=== PATIENT | male | born 1950 | race Caucasian/White ===

== ENCOUNTER → 2016-07-15 | Outpatient (CLI) | payer BC, OTHER ==
[~2016-07-15] MED LIST: ALBU1AER9 INH; ALLERGY INJECTIONS INJ; ASCA500 PO; ATOR10TA82 PO; BECL0.3A INH; CALC200T PO; CALC500C50 PO; CHLORPHENIRAMINE PO; COD1000C PO; CYCL10TA6 PO; GLUCTAB7 PO; HYDR-3419 PO; MBC75 PO; MISC1TAB PO; MONT1TAB5 PO; MULT-351 PO; NAPR1TAB9 PO; SODI5OIN4 IO; SUDAFED PO; TADA2.5T PO; UNPSR400 PO; [UNRECOGNIZED DRUG - CODE] PO
--- NOTE | 2016-07-15 11:08 | DIAGNOSTIC IMAGING REPORT ---
CHEST 2 VIEWS ROUTINE CLINICAL HISTORY: Cough. COMPARISON STUDY: Chest radiograph June 09, 2015. FINDINGS: Lung volumes are normal. There is no consolidation to suggest pneumonia. There is no evidence of pulmonary edema. Cardiomediastinal silhouette is normal. IMPRESSION: No acute cardiopulmonary findings. Electronically signed by: Bill Pulido M.D. 07/15/2016 11:07 AM Dictated Date/Time: 07/15/2016 11:06 AM
== END | disposition home or self-care (01) ==
LOC: C.RAD1850 10:31
PROVIDERS: ATTEND Physician Assistant Medical
DX: R05 Cough (principal)

== ENCOUNTER → 2016-09-09 | Outpatient (CLI) | payer BC, OTHER ==
[2016-09-09 09:54] LABS: BASO % 0.8 %; BASO ABS # 0.05 K/uL (0-0.2); COMPLETE YES; EOS % 18.8 %; HEMATOCRIT 45.1 % (42-52); IG% 0.2 %; LYMPH % 20.9 %; LYMPH ABS # 1.34 K/uL (1.2-3.4); MEAN CELL VOLUME 85.1 fL (80-100); MEAN CORPUSCULAR HEMOGLOBIN 28.5 pg (25-34); MEAN CORPUSCULAR HGB CONC 33.5 g/dl (32-36); MEAN PLATELET VOLUME 10.1 fL (7.4-10.4); NEUT % 49.3 %; PLATELET COUNT 290 K/uL (130-400)
[2016-09-09 10:02] LABS: BLOOD UREA NITROGEN 19 mg/dl (7-18); BUN/CREATININE RATIO 16.9 (10-20); CARBON DIOXIDE 25 mmol/L (21-32); CHLORIDE 107 mmol/L (98-107); GLUCOSE 99 mg/dl (70-99); POTASSIUM 4.2 mmol/L (3.5-5.1); SODIUM 140 mmol/L (136-145)
[2016-09-09 10:05] LABS: ALB/GLOB RATIO 1.1 (0.9-2); ALKALINE PHOSPHATASE 41 U/L (45-117); ALT/SGPT 37 U/L (12-78); AST/SGOT 29 U/L (15-37); CHOLESTEROL 157 mg/dl (0-200); CHOLESTEROL/HDL RATIO 4.1; HDL CHOLESTEROL 38 mg/dl; LDL CHOLESTEROL CALCULATED 93 mg/dl; TRIGLYCERIDES 132 mg/dl (0-150); VERY LOW DENSITY LIPOPROT CALC 26 mg/dl
[2016-09-09 10:07] LABS: CALCIUM 8.9 mg/dl (8.5-10.1)
== END | disposition home or self-care (01) ==
LOC: C.LAB1850 08:06
PROVIDERS: ATTEND Internal Medicine Pulmonary Disease
DX: J30.9 Allergic rhinitis, unspecified (principal); J45.909 Unspecified asthma, uncomplicated; G47.33 Obstructive sleep apnea (adult) (pediatric); E78.5 Hyperlipidemia, unspecified

== ENCOUNTER → 2017-03-22 | Outpatient (CLI) | payer OTHER ==
[~2017-03-22] MED LIST changes: +ACET-24 PO; +ASPEC325 PO; +BECL80AE7 INH; +CHLO4TAB70 PO; +IBUP-1450 PO; +MURO OPB; +PSEU30TA3 PO; +RXC5 PO; +TADA10TA PO; +VNTHFA/IN INH; +[UNRECOGNIZED DRUG - OTHER] PO
[2017-03-22 10:08] LABS: BASO % 0.9 %; BASO ABS # 0.05 K/uL (0-0.2); EOS ABS # 0.76 K/uL (0-0.5); HEMATOCRIT 44.4 % (42-52); HEMOGLOBIN 14.8 g/dL (14.0-18.0); IG# 0.01 K/uL (0.00-0.02); LYMPH % 25.1 %; LYMPH ABS # 1.47 K/uL (1.2-3.4); MEAN CELL VOLUME 83.8 fL (80-100); MEAN CORPUSCULAR HEMOGLOBIN 27.9 pg (25-34); MEAN CORPUSCULAR HGB CONC 33.3 g/dl (32-36); MEAN PLATELET VOLUME 10.1 fL (7.4-10.4); MONO % 9.2 %; MONO ABS # 0.54 K/uL (0.11-0.59); NEUT % 51.6 %; NEUT ABS # 3.02 K/uL (1.4-6.5); PLATELET COUNT 314 K/uL (130-400); RED CELL DISTRIBUTION WIDTH CV 13.8 % (11.5-14.5); RED CELL DISTRIBUTION WIDTH SD 42.5 fL (36.4-46.3); WHITE BLOOD COUNT 5.85 K/uL (4.8-10.8)
[2017-03-22 10:37] LABS: ALBUMIN 3.7 gm/dl (3.4-5.0); ALT/SGPT 34 U/L (12-78); AST/SGOT 24 U/L (15-37); BLOOD UREA NITROGEN 22 mg/dl (7-18); CALCIUM 8.7 mg/dl (8.5-10.1); CARBON DIOXIDE 25 mmol/L (21-32); CHOLESTEROL 152 mg/dl (0-200); CREATININE 0.93 mg/dl (0.60-1.40); GLUCOSE 102 mg/dl (70-99); POTASSIUM 4.1 mmol/L (3.5-5.1); SODIUM 138 mmol/L (136-145)
[2017-03-22 10:47] LABS: ALKALINE PHOSPHATASE 43 U/L (45-117); LDL CHOLESTEROL CALCULATED 92 mg/dl; TOTAL PROTEIN 7.3 gm/dl (6.4-8.2)
--- NOTE | 2017-07-15 06:01 | CODING QUERY MEDICAL NECESSITY ---
XQSUPPORTING DIAGNOSIS NEEDED A supporting diagnosis is required for the test/procedure performed on this patient in order for us to be reimbursed by the patient's insurance. Please provide a supporting diagnosis for the following test/procedure listed below next to the test name along with your signature. *If there is no additional diagnosis for this patient that would support the following test/procedure please document that below next to the test/procedure. Test(s)/Procedure(s) that require a supporting diagnosis: DOS 04/09/17 COMPLETE BLOOD COUNTS TESTING THYROID TEST LIPID TEST Provider Signature: Date: Thank you Ed[facility] Once completed, please kindly fax back to [phone] For questions please call [phone]
== END | disposition home or self-care (01) ==
LOC: C.LAB1850 09:00
PROVIDERS: ATTEND Internal Medicine Pulmonary Disease
DX: Z12.5 Encounter for screening for malignant neoplasm of prostate (principal); H91.90 Unspecified hearing loss, unspecified ear; J45.909 Unspecified asthma, uncomplicated; J30.9 Allergic rhinitis, unspecified; I10 Essential (primary) hypertension; E78.5 Hyperlipidemia, unspecified

== ENCOUNTER 2017-04-05 10:23 | Inpatient (IN) | payer OTHER ==
[2017-03-30 13:33] VITALS: Ht 177.8 cm; Wt 82.2 kg
--- NOTE | 2017-03-30 14:08 | PAT Medication Instructions ---
Service Date Mar 30, 2017. Current Home Medication List Albuterol Hfa (Ventolin Hfa), 2 PUFFS INH Q6H PRN for PRN Ascorbic Acid (Vitamin C), 500 MG PO QAM Atorvastatin (Lipitor), 10 MG PO QAM Beclomethasone Dip (Qvar), 2 SPRAYS INH PRN Calcium Carbonate (Antacid) (Tums), 2 TAB PO UD PRN for Dyspepsia Calcium Carbonate-Vitamin D (Oscal 500/200 D-3), 1 TAB PO UD Chlorpheniramine Maleate (Chlorpheniramine Maleate), 4 MG PO PRN Cod Liver Oil (Cod Liver Oil 1000 mg), 1 CAP PO QAM Lgpgtsjpiku-Jgbvejjvzce-Zbm C- (Glucosamine Chondroitin), 3 TAB PO QAM Misc Natural Products (Urinozinc Plus), 1 TAB PO BID PRN for TAB Montelukast Sodium (Montelukast Sodium), 10 MG PO QAM Multiple Vitamin (Multi Vitamin Mens), 1 TAB PO QAM Naproxen (Aleve), 40 MG PO PRN Pseudoephedrine Hcl (Sudafed Nasal Decongestan), 60 TAB PO BID PRN for RN [place] Extract (Trinovin), 2 CAP PO BID Tadalafil (Cialis), 5 MG PO QPM Theophylline Cont Rel (Uniphyl Controlled Rel), 800 MG PO QAM PRN for PRN [Allergy Injections], 1 DOSE INJ WK [Ronna 128 Oint], 1 DOSE OPB HS [Nervefix], 1 TAB PO BID Medication Instructions For Your Scheduled Surgery - Hold the following medications starting 110/18: [place] Extract (Trinovin), 2 CAP PO BID Theophylline Cont Rel (Uniphyl Controlled Rel), 800 MG PO QAM PRN for PRN [Allergy Injections], 1 DOSE INJ WK [Nervefix], 1 TAB PO BID Misc Natural Products (Urinozinc Plus), 1 TAB PO BID PRN for TAB Cod Liver Oil (Cod Liver Oil 1000 mg), 1 CAP PO QAM Ywxsstqrxvw-Ifddevyqajm-Tku C- (Glucosamine Chondroitin), 3 TAB PO QAM Naproxen (Aleve), 40 MG PO PRN - Hold the following medications the morning of surgery: Pseudoephedrine Hcl (Sudafed Nasal Decongestan), 60 TAB PO BID PRN for RN Multiple Vitamin (Multi Vitamin Mens), 1 TAB PO QAM Montelukast Sodium (Montelukast Sodium), 10 MG PO QAM Calcium Carbonate (Antacid) (Tums), 2 TAB PO UD PRN for Dyspepsia Calcium Carbonate-Vitamin D (Oscal 500/200 D-3), 1 TAB PO UD Ascorbic Acid (Vitamin C), 500 MG PO QAM Chlorpheniramine Maleate (Chlorpheniramine Maleate), 4 MG PO PRN - Take the following medications the morning of surgery with a sip of water: Beclomethasone Dip (Qvar), 2 SPRAYS INH PRN (if needed) Atorvastatin (Lipitor), 10 MG PO QAM Albuterol Hfa (Ventolin Hfa), 2 PUFFS INH Q6H PRN for PRN (if needed) - Take the following medications as scheduled the night before surgery: Tadalafil (Cialis), 5 MG PO QPM [Ronna 128 Oint], 1 DOSE OPB HS Pseudoephedrine Hcl (Sudafed Nasal Decongestan), 60 TAB PO BID PRN for RN (if needed) Calcium Carbonate (Antacid) (Tums), 2 TAB PO UD PRN for Dyspepsia (if needed) Calcium Carbonate-Vitamin D (Oscal 500/200 D-3), 1 TAB PO UD Beclomethasone Dip (Qvar), 2 SPRAYS INH PRN (if needed) Albuterol Hfa (Ventolin Hfa), 2 PUFFS INH Q6H PRN for PRN (if needed) Chlorpheniramine Maleate (Chlorpheniramine Maleate), 4 MG PO PRN (if needed) If you have any questions please call us at [phone] or [phone] or [phone]
[2017-03-30 15:37] LABS: PTT PATIENT 26.8 SECONDS (21.0-31.0)
--- NOTE | 2017-03-31 22:08 | HISTORY & PHYSICAL EXAMINATION ---
DATE OF ADMISSION: 04/05/2017 CHIEF COMPLAINT: Left knee pain, discomfort and effusions. HISTORY OF PRESENT ILLNESS: This is a 67-year-old very active gentleman and an avid hiker who presents for surgical treatment of his left knee. He has a long history of knee problems and actually had his left knee scoped back in January of 1999. He did pretty well for a while. He recently had some spine surgery by Dr. Johnson in July of 2015. He has done well from this as well. Over the past, several years, he has developed increased discomfort and disability related to his left knee. He likes to hike but unable to do so due to his knee pain and discomfort. He has tried to go hiking but has had to sit down for long periods of time and wait for his family members due to his pain. The more he walks, the more it hurts. It swells. He has failed conservative treatment and would like to have his left knee replaced. PAST MEDICAL HISTORY: 1. Asthma. 2. Arthritis. 3. Low back pain/sciatica 4. Gastroesophageal reflux disease. 5. Squamous cell skin cancer. 6. BPH. PAST SURGICAL HISTORY: 1. Appendectomy. 2. Bilateral inguinal hernia repair. 3. Bilateral polypectomy. 4. Hemorrhoid surgery. 5. Left knee scope in 1998. 6. Right knee scope done in 2011. 7. Colonoscopy. 8. Hernia repair. 9. Lumbar laminectomy in 1971. 10. The back surgery by Dr. Johnson in July of 2015. ALLERGIES: POLLEN AND MOLD. CURRENT MEDICINES: Include: 1. Albuterol inhaler. 2. Atorvastatin 10 mg. 3. Montelukast 10 mg. 4. Cialis 5 mg. 5. Beclomethasone inhaler p.r.n. 6. Meloxicam p.r.n. 7. Prednisone 10 mg a day. 8. Flexeril 10 mg a day. 9. Vicodin p.r.n. 10. Theophylline 4 mg twice a day. 11. Allergy injections. SOCIAL HISTORY: This is a 67-year-old male. He is very active. He enjoys hiking. Does not smoke. 14 drinks per week. FAMILY HISTORY: Noncontributory. REVIEW OF SYSTEMS: Negative for diabetes, neurologic problems, vascular problems, bleeding disorders. Denies any chest pain, no shortness of breath. No history of DVT or PE. PHYSICAL EXAMINATION: GENERAL: Reveals a pleasant, middle-aged male. He looks to be in good health. HEENT: Benign. NECK: Supple. No lymphadenopathy. LUNGS: Clear to auscultation. HEART: Regular rate and rhythm. ABDOMEN: Soft, nontender, nondistended. EXTREMITIES: Grossly neurovascularly intact except as follows: Examination of the left knee reveals the patient walks with a slight bit of limp. He has varus alignment to his knee. He has bony hypertrophy medially. A moderate size effusion. He has varus thrust with weightbearing. Range of motion is 5-120. No instability. X-RAYS: X-rays of the left knee were reviewed. It shows advanced medial compartment DJD. He has complete loss of his medial joint space. He has varus deformity to his knee. ASSESSMENT: A 67-year-old male with a history of left knee arthroscopy back in 1998 with persistent progressive left knee pain, discomfort and degenerative joint disease. It is really limiting his activities and he would like to have his left knee replaced. PLAN: We will take him to the operating room and do a left total knee replacement. The risks and benefits of this procedure were explained to the patient including but not limited to DVT, PE, , infection, neurologic injury, vascular injury, bleeding problems, pain, limited range of motion, stiffness, failure to relieve symptoms, incomplete relief of symptoms, need for further surgeries in the future, fracture, leg length inequality, nerve palsy, etc. The patient understands and desires to proceed. Informed consent was obtained. As far as discharge plans, he is planning to be discharged to home using [facility] home health program. We will likely give him some stress dose steroids to his prednisone use.
[~2017-04-05] VITALS: Ht 177.8 cm; Wt 82.2 kg
[~2017-04-05 10:23] MED LIST changes: -ACET-24 PO; +ACETAMINOPHEN 500 MG TAB PO SCH; -ALBU1AER9 INH; -ASPEC325 PO; +ATROPINE SULFATE 0.1 MG/ML 5ML SYR IV PRN; -BECL0.3A INH; -BECL80AE7 INH; +BUPIVACAINE 0.25% 30 ML VIAL ONE; +BUPIVACAINE 0.5 % 5 MG/1 ML PF 10ML VIAL ONE; +BUPIVACAINE LIPOSOME 266 MG, BUPIVACAINE/EPINEPHRINE INJ 50 ML, SODIUM CHLORIDE 0.9% PF... INFIL SCH; +CEFAZOLIN 2000MG IV PUSH 10 ML IV SCH; -CHLORPHENIRAMINE PO; -CYCL10TA6 PO; +EpHEDrine SULFATE INJ 50 MG/ML AMP IV PRN; +FAMOTIDINE 20 MG TAB PO SCH; +GABAPENTIN 300 MG CAP PO SCH; -HYDR-3419 PO; -IBUP-1450 PO; +LACTATED RINGER'S 1000ML 1,000 ML IV SCH; +LACTATED RINGER'S 1000ML 500 ML IV SCH; +LACTATED RINGER'S 1000ML IV SCH; -MBC75 PO; +METOCLOPRAMIDE HCL 10 MG TAB PO SCH; +ONDANSETRON INJ 2 MG/ML 2 ML VIAL IV PRN; +QVRINH80 INH; -RXC5 PO; +SCOPOLAMINE 1.5 MG TDSY TD SCH; -SODI5OIN4 IO; -SUDAFED PO; -TADA2.5T PO; +TRANEXAMIC ACID INJ 1,000 MG in SYRINGE 0 ML IV SCH
--- NOTE | 2017-04-05 10:52 | History & Physical Bridge Note ---
H&P Re-Evaluation Bridge Note: I have examined the patient, reviewed the History & Physical and in the interval since the performance of the History & Physical I have noted the following changes of clinical significance: No changes noted
[2017-04-05 11:13] VITALS: BP 154/82; PULSE 66; TEMP 36.5; O2SAT 97
[2017-04-05] MEDS ORDERED: MIDAZOLAM HCL 1 MG/ML 2ML VIAL ONE (12:03)
[2017-04-05] MEDS ORDERED: SODIUM CHLORIDE 0.9% PF 50 ML VIAL ONE (12:40)
[2017-04-05] MEDS ORDERED: BACITRACIN 50000 UNIT VIAL ONE (12:40)
[2017-04-05] MEDS ORDERED: BUPIVACAINE/EPINEPHRINE 0.25% 1:200,000 30 ML VIAL ONE (12:40)
[2017-04-05] MEDS ORDERED: BUPIVACAINE LIPOSOME 1/3% 266 MG/20 ML VIAL INFIL ONE (12:40)
[2017-04-05] MEDS ORDERED: VANCOMYCIN HCL 1000MG/20ML VIAL ONE (13:36)
[2017-04-05] MEDS ORDERED: PROPOFOL IV EMULSION 10 MG/ML 20 ML VIAL IV ONE (14:11)
[2017-04-05] MEDS ORDERED: HYDROCORTISONE SOD SUCCINATE 100 MG/2 ML VIAL ONE (14:39)
--- NOTE | 2017-04-05 14:44 | [facility] Post Operative Brief Note ---
Immediate Operative Summary Operative Date Apr 05, 2017. Pre-Operative Diagnosis Left Knee Advanced Degenerative Joint Disease Post-Operative Diagnosis Left Knee Advanced Degenerative Joint Disease Procedure(s) Performed Left Total Knee Arthroplasty Surgeon Dr. Trejo Access Clinician Surgeon(s) JOEL Nelson Estimated Blood Loss 50 ml Findings Left Knee DJD Specimens Cytology--Left Knee Synovial Fluid--sent for cell count, fluid differential and crystal analysis--sent to lab at 1335 Fluid sent for Stat Gram stain + Culture Culture--Left Knee Synovial Fluid--sent for STAT gram stain, routine culture and sensitivity, aerobes and anaerobes--sent to lab at 1335 A. Left Knee Bone and Tissue Drains None Anesthesia Spinal Complication(s) None Disposition Recovery Room / PACU
[2017-04-05] MEDS ORDERED: BECLOMETHASONE DIP HFA 80 MCG 8.7G INH INH PRN (14:45)
[2017-04-05] MEDS ORDERED: CEFAZOLIN IV 2,000 MG in DEXTROSE 5% 50ML 50 ML IV SCH (14:45)
[2017-04-05] MEDS ORDERED: ZOLPIDEM TARTRATE 5 MG TAB PO PRN (14:45)
[2017-04-05] MEDS ORDERED: HYDROmorphone INJ 0.5 MG/0.5 ML SYR IV PRN (14:45)
[2017-04-05] MEDS ORDERED: ALUMINUM/MAGNESIUM/SIMETH (MAALOX MAX) 30 ML UDC PO PRN (14:45)
[2017-04-05] MEDS ORDERED: TAMSULOSIN HCL 0.4 MG CAP PO PRN (14:45)
[2017-04-05] MEDS ORDERED: PSEUDOEPHEDRINE HCL 30 MG TAB PO PRN (14:45)
[2017-04-05] MEDS ORDERED: ALBUTEROL HFA 8 GM INHALER INH PRN (14:45)
[2017-04-05] MEDS ORDERED: MAGNESIUM HYDROXIDE SUSP 30 ML UDC PO PRN (14:45)
[2017-04-05] MEDS ORDERED: SILVER SULFADIAZINE 1% CR 50 GM JAR EXT PRN (14:45)
[2017-04-05] MEDS ORDERED: CALCIUM CARBONATE 500 MG CHEWABLE PO PRN (14:45)
[2017-04-05] MEDS ORDERED: ONDANSETRON INJ 2 MG/ML 2 ML VIAL IV PRN (14:45)
[2017-04-05] MEDS ORDERED: THEOPHYLLINE 400MG CONTROLLED REL TAB PO PRN (14:45)
[2017-04-05] MEDS ORDERED: CHLORPHENIRAMINE MALEATE 4 MG PO SCH (14:45)
[2017-04-05] MEDS ORDERED: DiphenhydrAMINE HCL 50 MG/ML VIAL IV PRN (14:45)
[2017-04-05] MEDS ORDERED: BISACODYL 10 MG SUPP PR PRN (14:45)
[2017-04-05] MEDS ORDERED: METOCLOPRAMIDE HCL INJ 5 MG/ML 2 ML VIAL IV PRN (14:45)
[2017-04-05] MEDS ORDERED: CALCIUM 600MG + VIT D 400 IU TAB PO PRN (14:45)
--- NOTE | 2017-04-05 15:27 | Anesthesiology Progress Note ---
Anesthesia Post Op Note Date & Time Apr 05, 2017 at 15:27 Vital Signs Pain Intensity: 0 Vital Signs Past 12 Hours Date Time Temp Pulse Resp B/P (MAP) Pulse Ox O2 Delivery O2 Flow Rate FiO2 04/05/17 15:15 37.3 64 16 123/64 97 Nasal Cannula 2 Oxymask 04/05/17 15:05 60 21 116/60 98 Nasal Cannula 2 Oxymask 04/05/17 14:55 70 18 127/65 99 Nasal Cannula 2 Oxymask 04/05/17 14:47 37.0 65 16 124/57 99 Oxymask 10 04/05/17 11:13 36.5 66 18 154/82 97 Room Air Notes Mental Status: alert / awake / arousable, participated in evaluation Pt Amnestic to Procedure: Yes Nausea / Vomiting: adequately controlled Pain: adequately controlled Airway Patency, RR, SpO2: stable & adequate BP & HR: stable & adequate Hydration State: stable & adequate Neuraxial Anesthesia: was administered, sensory block is resolving Anesthetic Complications: no major complications apparent
--- NOTE | 2017-04-05 15:42 | DIAGNOSTIC IMAGING REPORT ---
LEFT KNEE 2 VIEWS CLINICAL HISTORY: Postop knee arthroplasty COMPARISON: Outside conventional radiographic study dated 02/25/2017 DISCUSSION: There are postsurgical changes of a total left knee arthroplasty and patellar resurfacing. The femoral tibial components appear well seated. Overlying skin shelbie are visualized. There is air within the soft tissues consistent with recent surgery. IMPRESSION: Postsurgical changes of a total left knee arthroplasty. Electronically signed by: Artemio Ashby M.D. 04/05/2017 3:41 PM Dictated Date/Time: 04/05/2017 3:40 PM
[2017-04-05] MEDS: CHECK SCOPOLAMINE PATCH PLACEMENT SCH (16:00)
[2017-04-05 16:05] VITALS: BP 130/70; PULSE 62; TEMP 36.5; O2SAT 97
[2017-04-05 16:35] VITALS: BP 151/74; PULSE 57; TEMP 36.3; O2SAT 100
[2017-04-05 17:18] VITALS: BP 135/74; PULSE 58; TEMP 36.3; O2SAT 100
[2017-04-05] MEDS: D5W AND 1/2NSS + 20MEQ KCL 1,000 ML IV SCH (18:01)
[2017-04-05] MEDS: FERROUS GLUCONATE 324 MG TAB PO SCH (18:02)
[2017-04-05] MEDS: KETOROLAC TROMETHAMINE 15 MG/ML VIAL IV. SCH (18:06)
[2017-04-05 18:21] VITALS: BP 133/78; PULSE 70; TEMP 36.2; O2SAT 96
[2017-04-05 19:05] VITALS: BP 127/68; PULSE 69; TEMP 36.3; O2SAT 94
[2017-04-05] MEDS: CEFAZOLIN IV 2,000 MG in SYRINGE 0 ML IV SCH (19:52)
[2017-04-05] MEDS: SENNA 8.6 MG TAB PO SCH (20:24)
[2017-04-05] MEDS: DOCUSATE SODIUM 100 MG CAP PO SCH (20:24)
[2017-04-05] MEDS: TAPENTADOL ER 50 MG TABCR PO SCH (20:30)
[2017-04-05] MEDS: ASPIRIN 325 MG ECTAB PO SCH (20:31)
[2017-04-05] MEDS ORDERED: [UNRECOGNIZED DRUG - OTHER] PO SCH (21:00)
[2017-04-05] MEDS ORDERED: TRANEXAMIC ACID INJ 1,000 MG in SODIUM CHLORIDE 0.9% 100ML 100 ML IV SCH (21:00)
[2017-04-05] MEDS: ACETAMINOPHEN 500 MG TAB PO SCH (21:51)
[2017-04-05] MEDS: HYDROCORTISONE IV 100 MG in SYRINGE 0 ML IV SCH (21:52)
[2017-04-06] VITALS (7 sets, daily range): BP systolic 124–172; BP diastolic 76–82; PULSE 64–84; TEMP 36.7–37.1; O2SAT 91–96
[2017-04-06] MEDS: KETOROLAC TROMETHAMINE 15 MG/ML VIAL IV. SCH ×4 (00:31→18:22)
[2017-04-06] MEDS: D5W AND 1/2NSS + 20MEQ KCL 1,000 ML IV SCH ×2 (01:54→09:53)
[2017-04-06] MEDS: OXYCODONE HCL IR 5 MG TAB (IMMEDIATE RELEASE) PO PRN ×3 (03:53→21:45)
[2017-04-06] MEDS: CEFAZOLIN IV 2,000 MG in SYRINGE 0 ML IV SCH (03:53)
[2017-04-06] MEDS: HYDROCORTISONE IV 100 MG in SYRINGE 0 ML IV SCH ×2 (05:48→13:46)
[2017-04-06] MEDS: ACETAMINOPHEN 500 MG TAB PO SCH ×3 (05:48→21:46)
[2017-04-06 07:12] LABS: HEMATOCRIT 37.6 % (42-52); HEMOGLOBIN 12.3 g/dL (14.0-18.0); MEAN CELL VOLUME 82.6 fL (80-100); MEAN CORPUSCULAR HGB CONC 32.7 g/dl (32-36); MEAN PLATELET VOLUME 9.3 fL (7.4-10.4); PLATELET COUNT 278 K/uL (130-400); RED CELL DISTRIBUTION WIDTH SD 42.2 fL (36.4-46.3); WHITE BLOOD COUNT 7.38 K/uL (4.8-10.8)
--- NOTE | 2017-04-06 07:34 | OPERATIVE REPORT ---
DATE OF OPERATION: 04/05/2017 SURGEON: Salvatore Trejo MD BLOCK CHOPPER HAND: JOEL Arenas PREOPERATIVE DIAGNOSIS: Left knee degenerative joint disease. POSTOPERATIVE DIAGNOSIS: Left knee advanced degenerative joint disease with recurrent inflammatory effusions. PROCEDURE PERFORMED: Left cemented posterior stabilized total knee arthroplasty. COMPLICATIONS: None. ESTIMATED BLOOD LOSS: 50 mL. FLUID REPLACEMENT: 1100 mL crystalloid fluid replacement. TOURNIQUET TIME: 61 minutes at 300 mmHg. ANESTHESIA: Spinal with adductor canal block. DRAINS: None. SPECIMENS: 1. Left knee fluid sent for cell count with differential and crystal analysis as well as stat gram stain aerobic and anaerobic culture. 2. Left knee bone sent for pathology. OPERATIVE INDICATIONS: The patient is a 67-year-old very active gentleman, john torres, who has had a long history of knee problems. He had his left knee scoped back in 1998 and did pretty well for a quite some time. Over the past several years, he developed increased pain and discomfort in his knee. It has been associated with pretty significant effusions. He has been treated with aspiration and injection. This became less successful over time. It is really limiting his ability to maintain an active lifestyle and he elected to proceed with total knee arthroplasty. OPERATIVE FINDINGS: Operative findings revealed advanced left knee DJD. Grade 4 [id number]-kv-fmny disease of both the medial and patellofemoral compartments. He had a varus deformity to his knee. He had a large inflammatory appearing knee effusion. He had a fixed flexion contracture about 10 degrees. OPERATIVE IMPLANTS: Operative implants consisted of: 1. Biomet Vanguard size 70 left posterior stabilized femoral component. 2. Biomet size 75 tibial tray. 3. A 10-mm posterior stabilized polyethylene insert. 4. A 31 x 8 all poly patella. OPERATIVE PROCEDURE: The patient was taken to the operating room, identified and placed on the operating table in the supine position. All contact areas were appropriately padded. IV antibiotics were provided by anesthesia team. A spinal anesthetic and adductor canal block had been provided in the holding area. Hagen catheter was placed in sterile fashion. The left lower extremity was then prepped and draped in the usual sterile fashion. Left leg was elevated and exsanguinated with Esmarch and tourniquet was placed at 300 mmHg. An anterior approach to the left knee was then performed through a longitudinal incision centered over the patella. Sharp dissection was carried out through the subcutaneous tissues down to the level of the extensor mechanism. A medial parapatellar arthrotomy incision was made. There was a very large effusion and the fluid looked inflammatory in appearance. We sent this off for cell count with differential, crystal analysis as well as stat gram stain aerobic and anaerobic culture. Unfortunately, these results did not come back before the end of the case. A subperiosteal dissection was carried out medially. The fat pad was resected from beneath the patellar tendon. I did do a complete synovectomy to get rid of this inflamed synovium. It did not look infected. There was no significant bony destruction, but the effusion was inflammatory in appearance. The ACL and PCL were then released from the distal femur. The tibia subluxated anteriorly. The external tibial alignment jig was then placed in the anterior face of the tibia and adjusted 16 mm medially. Proximal tibial cut was made to remove about a millimeter bone from the most deficient aspect of the medial tibial plateau. Some osteophytes were taken off medial and posteromedially. The tibia was sized to a size 75. Attention was then drawn to the femur. The distal femur was entered with a sharp drill. Intramedullary canal was suctioned. A left 6-degree valgus cutting guide was placed. Distal femoral cutting block was pinned in place. Distal femoral cut was made to take an additional 3 mm of bone off the distal femur. The femur was then sized exactly to a 70. The AP cutting block was pinned parallel to the epicondylar axis, which was 5 degrees of external rotation. The anterior cut, anterior chamfer, posterior cut, and posterior chamfer cuts were made. Box cutting guide was placed and adjusted slightly laterally. Box cut was made. The remnants of the medial and lateral menisci were excised. The osteophytes were taken off the posterior aspect of the femur. Trial femoral component was placed. Tibial tray was pinned in maximum external rotation and a drill and stem punch were used to create defect in proximal tibia for the tibial tray. The knee was then trialed and a 10-mm insert fit most appropriately. Attention was then drawn to patella. The patella was cleaned of all soft tissues. Patellar thickness measured 23 mm and it was cut down to 14. It was sized to a size 31 patella. Lug holes were drilled for a 31 patella. The lateral osteophyte was removed. Patella button was placed. Knee was taken through range of motion and the patella tracked nicely with no thumbs test. At this point, we were ready to place the implants. The lab results were not back yet. I felt confident enough that this was not infectious to proceed with implantation. A double batch [place] G cement was mixed. I did add an additional gram of vancomycin to the cement. A size 70 left posterior stabilized femoral component, size 75 tibial tray, 10 mm posterior stabilized polyethylene insert, and a 31 x 8 all poly patella were then cemented in place. The knee was brought into full extension. Final cement check was then performed. The pericapsular tissues were injected with 100 mL with a combination of 20 mL of Exparel, 30 mL of normal saline, and 50 mL of 0.25% Marcaine with epinephrine. The patient did receive 1 gram of tranexamic acid. The tourniquet was then let down for final tourniquet time of 61 minutes. Hemostasis was assured with the use of electrocautery. The extensor mechanism was then closed with a combination of #1 PDS suture and #1 Vicryl suture in a [id number] fashion. The extensor mechanism was checked and found to be intact. The subcutaneous tissues were then closed with 2-0 Dexon suture in a buried interrupted fashion. Skin was closed with skin shelbie. Leg was then cleaned and dried and a sterile dressing composed of Xeroform, 4 x 4, sterile cast padding and Jovan bandage were applied. The patient was then transferred to the recovery room in stable condition. The patient tolerated the procedure well with no complications. All needle and sponge counts were correct at the end of the operation. ADDENDUM: We did send his lab test out for evaluation. We were unable to get them back before I had to decide on placing the implant. I felt confident enough that there was not infection based on the quality of the tissue. The patient has been on prednisone as well for inflammatory processes. Although not ideal, I did elect to proceed with implantation as I felt comfortable that this did not represent infection and even if it shows some Gram stain on analysis, I am not sure I would have acted any differently as I was not sure what we believed that it was true infection. I attest to the content of the Intraoperative Record and any orders documented therein. Any exception s are noted below.
[2017-04-06 07:44] LABS: CALCIUM 8.2 mg/dl (8.5-10.1); CREATININE 0.91 mg/dl (0.60-1.40); POTASSIUM 3.8 mmol/L (3.5-5.1)
[2017-04-06] MEDS: CHECK SCOPOLAMINE PATCH PLACEMENT SCH ×3 (07:59→16:35)
--- NOTE | 2017-04-06 08:24 | Anesthesiology Progress Note ---
Anesthesia Post Op Note Date & Time Apr 06, 2017 at 08:23 Vital Signs Pain Intensity: 5.0 Vital Signs Past 12 Hours Date Time Temp Pulse Resp B/P (MAP) Pulse Ox O2 Delivery O2 Flow Rate FiO2 04/06/17 08:01 36.7 64 16 124/82 (96) 96 Room Air 04/06/17 03:30 36.7 70 16 156/78 (104) 94 Room Air 04/06/17 00:46 Room Air 04/06/17 00:21 37.1 69 16 158/76 (103) 95 Room Air Notes Mental Status: alert / awake / arousable, participated in evaluation Pt Amnestic to Procedure: Yes Nausea / Vomiting: adequately controlled Pain: adequately controlled Airway Patency, RR, SpO2: stable & adequate BP & HR: stable & adequate Hydration State: stable & adequate Neuraxial Anesthesia: sensory block resolved Anesthetic Complications: no major complications apparent
[2017-04-06] MEDS ORDERED: MULTIVITAMIN TAB PO SCH (09:00)
[2017-04-06] MEDS: TAPENTADOL ER 50 MG TABCR PO SCH ×2 (09:00→21:00)
[2017-04-06] MEDS: PANTOprazole SOD 40 MG TAB PO SCH (09:49)
[2017-04-06] MEDS: MONTELUKAST SOD 10 MG TAB PO SCH (09:52)
[2017-04-06] MEDS: ASCORBIC ACID 500 MG TAB PO SCH (09:52)
[2017-04-06] MEDS: MULTIVITAMIN TAB PO SCH (09:52)
[2017-04-06] MEDS: DOCUSATE SODIUM 100 MG CAP PO SCH ×2 (09:53→21:45)
[2017-04-06] MEDS: ATORVASTATIN 10 MG TAB PO SCH (09:53)
[2017-04-06] MEDS: FERROUS GLUCONATE 324 MG TAB PO SCH ×3 (09:53→18:20)
[2017-04-06] MEDS: ASPIRIN 325 MG ECTAB PO SCH ×2 (11:22→21:44)
--- NOTE | 2017-04-06 11:29 | PROGRESS NOTE ---
DATE: 04/06/2017 DATE: 04/06/2017 SUBJECTIVE: A 67-year-old gentleman postop day 1 from a left knee replacement. He is doing pretty well. Therapy went pretty well this morning. He apparently did not take his aspirin as he is concerned about allergic reaction. He does take other NSAIDs without issues. No chest pain or shortness of breath. OBJECTIVE: VITAL SIGNS: Temperature 36.7. Vital signs stable. GENERAL: He is a pleasant middle-aged male. He is sitting up at his bedside and looks pretty comfortable. LUNGS: Clear to auscultation. HEART: Regular rate and rhythm. ABDOMEN: Soft, nontender, nondistended. EXTREMITY EXAMINATION: Grossly neurovascularly intact except as follows: Examination of the left leg reveals the dressing to be clean, dry, and intact. He can dorsiflex and plantarflex his foot appropriately. He is neurologically intact. LABORATORY DATA: Hemoglobin 12.3. Hematocrit 37.6. Electrolytes are stable. ASSESSMENT: A 67-year-old gentleman postop day 1 from left knee replacement, doing pretty well. He does have a history of asthma and his concern is with taking aspirin. He takes other NSAIDs without difficulty. I think it is unlikely he will have a reaction, but certainly always possible. His pain is controlled. He is neurologically intact. PLAN: 1. DVT prophylaxis including thigh high TEDs, SCDs. We talked about aspirin and he is going to try and see how he does in the hospital. If there are any issues will likely switch him to something else, either Xarelto or Coumadin. 2. PT, OT. Weight bear as tolerated. Left total knee protocol. 3. Pain control. Doing well with current pain regimen. 4. Disposition. He is hoping to be discharged to home with some home health once adequately recovered.
[2017-04-06] MEDS ORDERED: RXC5 PO (11:50)
[2017-04-06] MEDS ORDERED: ASPEC325 PO (11:50)
[2017-04-06] MEDS ORDERED: ACET-24 PO (11:50)
--- NOTE | 2017-04-06 11:52 | Discharge Instructions ---
Discharge Instructions Date of Service Apr 06, 2017. Admission Reason for Admission: Left Knee Degenerative Joint Disease, Knee Pain Discharge Discharge Diagnosis / Problem: Left Knee Replacement Discharge Goals Goal(s): Decrease discomfort, Improve function, Increase independence, Improve disease control, Therapeutic intervention Activity Recommendations Activity Limitations: per Instructions/Follow-up section Weightbearing Status: Left weightbearing . Instructions / Follow-Up Instructions / Follow-Up ACTIVITY RECOMMENDATIONS: Physical Therapy: * You will go to physical therapy three times each week for four to six weeks after your surgery in order to regain your knee range of motion and to retrain your knee to work properly. * It is just as important to make sure you are getting your knee perfectly straight as it is to regain your knee bend. * Taking a pain pill an hour before therapy can help you have a more productive and comfortable therapy session. Home Exercise: * You were shown a series of exercises (heel props, heel slides, etc.) in the hospital. Do these exercises three to four times each day including the exercises you were shown in physical therapy. Walking: * Get up and walk several times each day. For the first four weeks, try not to stand or walk for more than one hour at a time. If you do stand or walk for more than one hour, you will not hurt anything, but your knee and leg will likely swell. * As you feel comfortable, you may change from the walker or crutches to a cane and then to independent walking. MEDICATIONS: New Medicine: * You will likely be taking one or more of these medications: 1. Oxycodone - A quick and shorter-acting pain medication. Take one to two tablets every four to six hours to lessen your pain. 2. Aspirin - Thins your blood to lessen the chance of forming a blood clot. * The most common side effects of pain medicine and iron are nausea and constipation. If nausea or constipation is too much of a problem or if you have any questions about your new medicines or doses, call [facility] at [phone]. We will try to help you manage these issues. VERY IMPORTANT TO READ AND REVIEW" Pain: * The immediate post-operative period after knee replacement surgery is often quite painful. * You are given a prescription for pain medicine. You should take it, as directed, when you need it, especially before physical therapy and before going to bed. Pain that interferes with sleep is very common and can last several months. * You will likely need pain medicine for the first four to six weeks. It will not stop all of the pain. The pain will lessen and as you feel better, you may change to milder pain medicine such as Tylenol. * The most common side effects of pain medicine are nausea and constipation, so don't take more than you need. SPECIAL CARE INSTRUCTIONS: TEDs/Elastic Stockings: * The white elastic stockings help limit swelling and prevent blood clots from forming in your legs. The more you wear them, the more they work. * Wear them for six weeks after knee replacement surgery and four weeks after partial knee replacement. Prevention of Infection: * Take antibiotics one hour before any dental cleaning, dental work, urological procedure, gastrointestinal procedure or any invasive surgery in order to prevent your new joint from getting infected. * You may get the antibiotics from the doctor performing the procedure or you may call our office at before and we will call in a prescription to the pharmacy of your choice. Things to Watch For: * Drainage from the incision site that occurs more than one week after your surgery. * Severely increased knee/leg pain or swelling. * Increased redness at the incision site. * Fever above 102 degrees Fahrenheit. * Unusual chest pain or shortness of breath. * Unusual pain or burning with urination. Call [facility] at with any of the above problems or if you have any questions about your medicines or recovery. FOLLOW UP VISIT: Make an appointment to see your doctor for approximately two weeks after surgery for a progress check and staple removal by calling the office at . Current Hospital Diet Patient's current hospital diet: Regular Diet Discharge Diet Recommended Diet: Regular Diet Procedures Procedures Performed: Left Total Knee Arthroplasty Pending Studies Studies pending at discharge: no Laboratory Results Lipid Panel Test 03/22/17 09:06 Range/Units Triglycerides Level 121 0-150 mg/dl Cholesterol Level 152 0-200 mg/dl HDL Cholesterol 36 mg/dl Cholesterol/HDL Ratio 4.2 LDL Cholesterol, Calculated 92 mg/dl Medical Emergencies . Who to Call and When: Medical Emergencies: If at any time you feel your situation is an emergency, please call 911 immediately. . Non-Emergent Contact Non-Emergency issues call your: Surgeon . "Provider Documentation" section prepared by Salvatore Trejo. . VTE Core Measure Inpt VTE Proph given/why not?: Other Anticoagulation, T.E.D. Stockings, SCD's
[2017-04-06] MEDS ORDERED: CIALIS 5 MG PO SCH ×2 (17:00→21:00)
[2017-04-06] MEDS ORDERED: [UNRECOGNIZED DRUG - OTHER] OPB SCH (21:00)
[2017-04-06] MEDS ORDERED: SODIUM CHLORIDE OPB SCH (21:00)
[2017-04-06] MEDS: SENNA 8.6 MG TAB PO SCH (21:46)
[2017-04-07 00:03] VITALS: BP 169/77; PULSE 76; TEMP 36.9; O2SAT 91
[2017-04-07] MEDS: KETOROLAC TROMETHAMINE 15 MG/ML VIAL IV. SCH ×2 (00:34→05:59)
[2017-04-07] MEDS: ACETAMINOPHEN 500 MG TAB PO SCH (05:59)
[2017-04-07 07:28] VITALS: BP 176/79; PULSE 70; TEMP 36.8; O2SAT 94
--- NOTE | 2017-04-07 07:31 | PROGRESS NOTE ---
DATE: 04/07/2017 SUBJECTIVE: A 67-year-old gentleman postop day 2 from a left knee replacement. He is doing pretty well. Pain is controlled. Therapy has gone well. No chest pain or shortness of breath. Not feeling dizzy or lightheaded. He has taken several doses of aspirin without any issues. OBJECTIVE: VITAL SIGNS: Temperature 36.9. Vital signs stable. GENERAL: Reveals a pleasant, middle-aged male. I had to wake him this morning. EXTREMITIES: Examination of the left leg reveals the dressing to be clean, dry and intact. Not a lot of swelling. No significant drainage. His calf is soft and supple. He is neurologically intact. ASSESSMENT: A 67-year-old gentleman postop day 2 from a left knee replacement, doing pretty well. His pain is controlled. He has taken some aspirin without any difficulty. He is doing okay in the pain medicine as well. PLAN: 1. DVT prophylaxis including thigh-high TEDs, SCDs, and aspirin twice a day. If there is any issues to let us know. 2. PT/OT. Weightbearing as tolerated. Left total knee protocol. 3. Pain control, doing pretty well with current pain regimen. 4. Disposition: Plan to discharge to home with some home health later today.
[2017-04-07] MEDS: CHECK SCOPOLAMINE PATCH PLACEMENT SCH ×2 (08:00)
[2017-04-07] MEDS: TAPENTADOL ER 50 MG TABCR PO SCH (09:00)
[2017-04-07] MEDS: ATORVASTATIN 10 MG TAB PO SCH (09:24)
[2017-04-07] MEDS: DOCUSATE SODIUM 100 MG CAP PO SCH (09:25)
[2017-04-07] MEDS: FERROUS GLUCONATE 324 MG TAB PO SCH (09:25)
[2017-04-07] MEDS: ASCORBIC ACID 500 MG TAB PO SCH (09:25)
[2017-04-07] MEDS: ASPIRIN 325 MG ECTAB PO SCH (09:25)
[2017-04-07] MEDS: MONTELUKAST SOD 10 MG TAB PO SCH (09:25)
[2017-04-07] MEDS: PANTOprazole SOD 40 MG TAB PO SCH (09:27)
[2017-04-07] MEDS: MULTIVITAMIN TAB PO SCH (10:23)
[2017-04-07 10:39] VITALS: BP 176/79; PULSE 70; TEMP 36.8; O2SAT 94
== END 2017-04-07 11:05 | disposition home health service (06) | DRG 470 ==
LOC: C.ACU 10:23 → C.3E 10:24 → ENRESERV 15:43
PROVIDERS: ADMIT Orthopaedic Surgery Sports Medicine; ATTEND Orthopaedic Surgery Sports Medicine
PROC: 0SRD0J9 Replacement of Left Knee Joint with Synthetic Substitute, Cemented, Open Approach (ICD-10-PCS; principal; 2017-04-05 12:30)
PROC: 0S9D0ZX Drainage of Left Knee Joint, Open Approach, Diagnostic (ICD-10-PCS; principal; 2017-04-05 12:30)
DX: M17.12 Unilateral primary osteoarthritis, left knee (principal); M25.462 Effusion, left knee; J45.909 Unspecified asthma, uncomplicated; N40.0 Benign prostatic hyperplasia without lower urinary tract symptoms; Z98.890 Other specified postprocedural states; Z85.828 Personal history of other malignant neoplasm of skin; Z79.52 Long term (current) use of systemic steroids; Z79.899 Other long term (current) drug therapy

== ENCOUNTER → 2017-05-13 | Outpatient (CLI) | payer OTHER ==
[~2017-05-13] MED LIST changes: +ACET-24 PO; -ACETAMINOPHEN 500 MG TAB PO SCH; +ASPEC325 PO; -ATROPINE SULFATE 0.1 MG/ML 5ML SYR IV PRN; -BUPIVACAINE 0.25% 30 ML VIAL ONE; -BUPIVACAINE 0.5 % 5 MG/1 ML PF 10ML VIAL ONE; -BUPIVACAINE LIPOSOME 266 MG, BUPIVACAINE/EPINEPHRINE INJ 50 ML, SODIUM CHLORIDE 0.9% PF... INFIL SCH; -CEFAZOLIN 2000MG IV PUSH 10 ML IV SCH; -EpHEDrine SULFATE INJ 50 MG/ML AMP IV PRN; -FAMOTIDINE 20 MG TAB PO SCH; -GABAPENTIN 300 MG CAP PO SCH; -LACTATED RINGER'S 1000ML 1,000 ML IV SCH; -LACTATED RINGER'S 1000ML 500 ML IV SCH; -LACTATED RINGER'S 1000ML IV SCH; -METOCLOPRAMIDE HCL 10 MG TAB PO SCH; -ONDANSETRON INJ 2 MG/ML 2 ML VIAL IV PRN; +RXC5 PO; -SCOPOLAMINE 1.5 MG TDSY TD SCH; -TRANEXAMIC ACID INJ 1,000 MG in SYRINGE 0 ML IV SCH
[2017-05-13 13:10] LABS: BASO ABS # 0.07 K/uL (0-0.2); EOS % 16.8 %; EOS ABS # 1.16 K/uL (0-0.5); HEMATOCRIT 41.2 % (42-52); HEMOGLOBIN 13.3 g/dL (14.0-18.0); IG# 0.02 K/uL (0.00-0.02); LYMPH ABS # 1.66 K/uL (1.2-3.4); MEAN CELL VOLUME 83.9 fL (80-100); MEAN CORPUSCULAR HEMOGLOBIN 27.1 pg (25-34); MEAN CORPUSCULAR HGB CONC 32.3 g/dl (32-36); MEAN PLATELET VOLUME 9.5 fL (7.4-10.4); MONO % 8.5 %; MONO ABS # 0.59 K/uL (0.11-0.59); NEUT % 49.4 %; NEUT ABS # 3.41 K/uL (1.4-6.5); PLATELET COUNT 310 K/uL (130-400); RED CELL DISTRIBUTION WIDTH CV 14.9 % (11.5-14.5); RED CELL DISTRIBUTION WIDTH SD 45.8 fL (36.4-46.3); WHITE BLOOD COUNT 6.91 K/uL (4.8-10.8)
== END | disposition home or self-care (01) ==
LOC: C.LAB1850 12:25
PROVIDERS: ATTEND Physician Assistant Medical
DX: H11.30 Conjunctival hemorrhage, unspecified eye (principal)